=== PATIENT | male | born 1960 | race Caucasian/White ===

== ENCOUNTER 2016-09-11 03:22 | Inpatient (IN) | payer OTHER ==
[~2016-09-11] VITALS: Ht 182.9 cm; Wt 96.0 kg
--- NOTE | ~2016-09-11 | EKG ---
PATIENT: RENNY GORMAN UNIT #: [id number] Ventricular Rate: 128 BPM Atrial Rate: 128 BPM P-R Interval: 134 ms QRS Duration: 96 ms Q-T Interval: 294 ms QTC Calculation(Bezet): 429 ms P [place]: 24 degrees Calculated R [place]: -14 degrees Calculated T [place]: 38 degrees Diagnosis Line: Sinus tachycardia Diagnosis Line: Septal infarct , age undetermined Diagnosis Line: Abnormal ECG Diagnosis Line: When compared with ECG of 26-OCT-2015 18:28, Diagnosis Line: Vent. rate has increased BY 53 BPM Diagnosis Line: Confirmed by CIRO POWELL MD ([id number]) on Diagnosis Line: 09/11/2016 2:02:33 PM INTERPRETING MD: SHERRY SEWELL
--- NOTE | ~2016-09-11 | DS ---
Unit #: [id number] #: [id number] Patient: RENNY GORMAN [id number] [address] [id number] I MR#: [id number] NAME: RENNY GORMAN ROOM: 305 Age: 56 Sex: M Admission Date: 09/11/2016 : 1960 Discharge Date: 09/12/2016 Attending Physician: Dion Olson M.D. Primary Care Physician: No Primary Care Physician DISCHARGE SUMMARY SHORT STAY SUMMARY DIAGNOSIS ON ADMISSION Hepatic encephalopathy. HOSPITAL COURSE This 56-year-old male was admitted to the hospital with increased confusion. Details are as per admission H and P. The patient was admitted and diagnosed with hepatic encephalopathy and was treated with lactulose. The patient was seen by Dr. Sorto in consultation. The patient received lactulose and is doing much better and his confusion is better. He is alert and awake and wants to go home today. CONDITION Stable. ACTIVITY As tolerated. MEDICATION 1. Lactulose 30 mL p.o. t.i.d. 2. Xifaxan 550 mg p.o. b.i.d. 3. Lisinopril 20 mg p.o. daily. 4. Levemir insulin at home dose. 5. Prilosec 40 mg p.o. daily. 6. Folic acid 1 mg p.o. daily. 7. Thiamine 100 mg p.o. daily. FOLLOWUP 1. The patient is advised to follow up with primary care physician in one week and have a CBC and BMP and ammonia level done. 2. The patient is advised to follow up with Dr. Leo Sorto as recommended in four weeks. The plan was discussed in detail with patient and and they showed complete understanding. Dictated by... Ian Mccullough TD: 09/12/2016 15:03 Unit #: [id number] #: [id number] Patient: RENNY GORMAN JOB #: [id number] DISCHARGE SUMMARY Page 1 of 1 X Dion Olson MD X DISCHARGE SUMMARY
--- NOTE | ~2016-09-11 | HP ---
Unit #: [id number] #: [id number] Patient: RENNY GORMAN [id number] [facility] [address] [facility] [place], [place] [address] [id number] I MR#: [id number] NAME: RENNY GORMAN ROOM: 305 Age: 56 Sex: M Admission Date: 09/11/2016 : 1960 Attending Physician: Dion Olson M.D. Primary Care Physician: Primary Care Physician No HISTORY AND PHYSICAL DIAGNOSIS ON ADMISSION 1. Altered mental status. 2. Hepatic encephalopathy. HISTORY OF PRESENT ILLNESS Rrfhw-likpm-pwtu-old male, presented to [facility] with confusion and lethargy. The patient is currently lethargic, arousable but not able to provide history which was obtained with the help of the patient's . As per patient's , the patient was doing good up until last night when around 8:00 p.m. he became confused. The patient's states that during the daytime he was normal. The patient became confused, disoriented, and became very agitated. And she called the EMS and bring the patient to the hospital. In the emergency room, the patient was diagnosed with hepatic encephalopathy and it was decided to admit him into the hospital. The patient is currently lying in the bed, he is lethargic, arousable, but not able to provide history. The patient's states that the patient did not have any fevers, chills, or cough. There was no history of chest pain, tightness, shortness of air, or rectal bleeding. She states that the patient had lactulose at home which he was not taking for the last two months. Unable to obtain review of systems. PAST MEDICAL HISTORY 1. The patient had history of gastroesophageal reflux disease. 2. Hypertension. 3. Type 2 diabetes mellitus. The patient is on Levemir at home. 4. Chronic pain syndrome. 5. Diabetic neuropathy. 6. Chronic hepatitis C and likely cirrhosis as per . The patient has seen a liver doctor in the past but doesn't know the name. 7. Possible obstructive sleep apnea syndrome. 8. History of chronic cytopenia. PAST SURGICAL HISTORY 1. Appendectomy. 2. Right knee surgery. 3. Cholecystectomy. 4. Left ankle surgery. SOCIAL HISTORY The patient is . He smokes half pack of cigarettes per day for the Unit #: [id number] #: [id number] Patient: RENNY GORMAN past many years. He has quit drinking oznr-dj-msem years ago as per . FAMILY HISTORY Unable to obtain. ALLERGIES No known drug allergies. HOME MEDICATIONS 1. Prilosec 40 mg p.o. daily 2. Levemir 50 units daily as per 3. Lisinopril 5 mg p.o. daily PHYSICAL EXAMINATION GENERAL: The patient was lying in bed, not able to provide history. He is lethargic but is arousable. VITAL SIGNS: Reveal temperature of 97.7, pulse is 101 per minute, respiratory rate is 18 per minute, and blood pressure is 163/93. HEENT EXAMINATION: Revealed no conjunctival congestion. Sclerae is nonicteric. RESPIRATORY EXAMINATION: Revealed decreased breath sounds bilaterally. There are no wheezes or crackles. HEART: Tachycardic. S1 and S2. ABDOMEN: Soft and nontender. Bowel sounds are present. EXTREMITIES: Reveal pedal edema. NEUROLOGICAL: The patient is lethargic, does not follow commands. DIAGNOSTIC STUDIES LABORATORY: Labs on admission, the patient's creatinine is 1.2, sodium 137, potassium is 5.1, total bilirubin is 1.3, AST and ALT within normal limits, alkaline phosphatase was 160. The patient's ammonia level was 119, WBC was 3.9, hemoglobin 10.9, platelet count is 115. Urinalysis was negative of nitrate and esterase. Urine drug screen was positive for opiates and amphetamines. IMAGING: The patient's CT scan of head was normal. Chest x-ray did not reveal any active process. CARDIOVASCULAR: EKG revealed sinus tachycardia. ASSESSMENT/PLAN Pqmde-npuec-gecx-old male, presented to the hospital with altered mental status and lethargy. 1. Hepatic encephalopathy, the patient has been seen by Dr. Sorto in consultation who has advised lactulose and advised to put NG tube, and also started the patient on Levaquin. The patient has history of hepatitis C which is treated. 2. History of alcohol abuse. The patient quit drinking four years ago. 3. Hypertension. We will start the patient on his home medications and will use clonidine and will use hydralazine p.r.n. as the patient is not able to take his medications. 4. Insulin dependent diabetes mellitus, I have the patient on Accu-Cheks q.6 and insulin sliding scale on low dose. 5. THE PATIENT IS FULL CODE. The plan was discussed in detail with the patient's who showed Unit #: [id number] #: [id number] Patient: RENNY GORMAN complete understanding. Dictated by Ian Mccullough/saw TD: 09/11/2016 12:49 JOB #: [id number] HISTORY AND PHYSICAL Page 1 of 1 X Dion Olson MD HISTORY AND PHYSICAL
--- NOTE | ~2016-09-11 | CR72 ---
[facility] A Service of [facility] RADIOLOGY TEXT RESULTS PATIENT: RENNY GORMAN LOCATION: [facility] 305- : 58 UNIT #: [id number] AGE: [address]: Dion Olson MD SEX: M ORDER DR: [id number] [place], [place] [address] [id number] MR#: [id number] Acc #: [id number] NAME: RENNY GORMAN : 1960 SEX: M STUDY DATE/TIME: 09/11/2016 3:50 UNIT: [facility] ROOM: STUDY DESCRIPTION: CR Chest Single View Portable Attending Physician: Luis Lynn M.D. Ordering Physician: [facility] MEDICAL IMAGING REPORT This report is preliminary unless electronic signature is present EXAM Portable chest INDICATIONS Shortness of air tonight. TECHNIQUE Frontal view chest. COMPARISON STUDIES 10/26/2015. FINDINGS Heart size not significantly changed. No dense consolidation pleural fluid or pneumothorax. IMPRESSION No active process. Dictated by... Preet Merida M.D. THIS IS AN ELECTRONICALLY VERIFIED REPORT Preet Merida M.D. at 09/11/2016 9:55 PM EED/pcl TD: 09/11/2016 08:55 JOB #: [id number] MEDICAL IMAGING REPORT Page 1 of 1 COPY
--- NOTE | ~2016-09-11 | CT71 ---
[facility] A Service of [facility] RADIOLOGY TEXT RESULTS PATIENT: RENNY GORMAN LOCATION: [facility] 305 : 58 UNIT #: [id number] AGE: [address]: Dion Olson MD SEX: M ORDER DR: [id number] [place], [place] [address] [id number] I MR#: [id number] Acc #: [id number] NAME: RENNY GORMAN : 1960 SEX: M STUDY DATE/TIME: 09/11/2016 6:42 UNIT: [facility] ROOM: 61809 STUDY DESCRIPTION: CT Head Wo Contrast Attending Physician: Dion Olson M.D. Ordering Physician: [facility] MEDICAL IMAGING REPORT This report is preliminary unless electronic signature is present EXAM CT head INDICATIONS Altered mental status and confusion for [address]ative[address] Fell. TECHNIQUE CT head without contrast. This CT exam was performed with one or more of the following radiation dose reduction techniques: automatic exposure control, adjustment of mA and/or kV according to patient size, and iterative reconstruction. COMPARISON CT head 10/26/2015. FINDINGS Ventricular size and configuration are normal. There is no evidence of acute infarct or hemorrhage. There are no extraaxial fluid collections. No mass lesion or mass effect is seen. There are no skull fractures. IMPRESSION Normal noncontrast head CT. Dictated by... Claudy Renteria M.D. THIS IS AN ELECTRONICALLY VERIFIED REPORT Claudy Renteria M.D. at 09/11/2016 2:14 PM RPC/pcl [facility] A Service of [facility] RADIOLOGY TEXT RESULTS PATIENT: RENNY GORMAN LOCATION: [facility] 305 : 58 UNIT #: [id number] AGE: [address]: Dion Olson MD SEX: M ORDER DR: TD: 09/11/2016 09:30 JOB #: [id number] MEDICAL IMAGING REPORT Page 1 of 1 COPY
[~2016-09-11 03:22] MED LIST: ACETAMINOPHEN650 M3 PO; AMLODIPINE BESYL5 MG PO; ASPIRIN81 MG PO; AUGMENTIN PO; AURODEX EAR DRO15 ML AD; AVANDAMET PO; CLONIDINE HCL0.1 MG PO; HYDROCODON-ACE1 EAC5 PO; LEVAQUIN750 MG PO; LEVEMIR FL100 UNIT/1 SQ; LEVEMIR SUBQ; LEVEMIR100 U/ML SQ; LISINOPRIL PO; LISINOPRIL10 MG PO; LORTAB 7.5-5001 TAB PO; METFORMIN; MILK OF MAGNESIA PO; NEURONTIN PO; NEURONTIN600 MG PO; NORCO 10-325 TA1 TAB PO; NOVOLOG100 U/M2; OMEPRAZOLE40 M1 PO; PERCOCET 5-3251 TAB PO; PERCOCET5/325 PO; PHENERGAN PO; PRILOSEC20 M1 PO; PRINIVIL5 MG PO; SYMBICORT 16010.2 GM INH; VIACTIV SOFT C1 EACH PO
[2016-09-11 06:00] LABS: BASOPHIL% 0.4 % (0-2.5); EOSINOPHIL% 0.3 % (0.0-7.0); HEMATOCRIT 32.8 % (38.0-50.0); HEMOGLOBIN 10.9 gm/dL (13.0-16.0); LYMPHOCYTE% 25.7 % (17.0-45.0); MEAN CELL VOLUME 92.4 FL (83-96); MEAN CORPUSCULAR HEMOGLOBIN 30.7 PG (28-34); MEAN CORPUSCULAR HGB CONC 33.2 g/dL (30-36); MEAN PLATELET VOLUME 8.1 FL (6.5-11.5); MONOCYTE# 0.3 X10e3 (0-1.0); MONOCYTE% 7.8 % (3.0-12.0); NEUTROPHIL# 2.5 X10e3 (1.5-7.1); NEUTROPHIL% 65.8 % (40-75); PLATELET COUNT 115 X10e3 (140-420); RED BLOOD COUNT 3.55 X10e (3.90-5.60); RED CELL DISTRIBUTION WIDTH 14.6 % (11.0-15.5); WHITE BLOOD COUNT 3.9 X10e3 (4.0-10.5)
[2016-09-11 06:03] LABS: DIFF IND NO
[2016-09-11 06:21] LABS: URINE SOURCE CLEAN CATCH
[2016-09-11 06:26] LABS: URINE APPEARANCE CLEAR; URINE BILIRUBIN NEG (NEG); URINE BLOOD 1+ (NEG); URINE COLOR YELLOW; URINE GLUCOSE 500 MG/DL (NEG); URINE KETONE NEG (NEG); URINE LEUKOCYTE ESTERASE NEG (NEG); URINE NITRATE NEG (NEG); URINE PROTEIN 1+ (NEG); URINE SPECIFIC GRAVITY 1.016 (1.003-1.035)
[2016-09-11 06:29] LABS: URINE BACTERIA AUWI NEG (NEGATIVE); URINE SQUAMOUS EPITHELIAL CELL NONE SEEN /[HPF]; UWBCS1 AUWI 0-2 (0-5)
[2016-09-11 06:29] LABS: ALBUMIN SERUM 3.6 g/dL (3.5-5.0); ALKALINE PHOSPHATASE 160 U/L (32-92); ALT (SGPT) 24 U/L (10-40); AST (SGOT) 37 U/L (10-42); BILIRUBIN, DIRECT 0.2 mg/dL (0.0-0.2); BILIRUBIN,INDIRECT 1.1 mg/dL (0.0-0.9); BILIRUBIN,TOTAL 1.3 mg/dL (0.2-2.0); BLOOD UREA NITROGEN 40 mg/dL (9-23); BUN/CREATININE RATIO 33.33; CALCIUM SERUM 8.6 mg/dL (8.4-10.2); CARBON DIOXIDE 18 mmol/L (22-31); CHLORIDE 113 mmol/L (100-111); CREATININE SERUM 1.2 mg/dL (0.6-1.4); GLOM FILT RATE Estimated 66.7 mL/min (>60); GLUCOSE FASTING 225 mg/dL (70-110); POTASSIUM 5.1 mmol/L (3.5-5.1); PROTEIN TOTAL SERUM 7.9 g/dL (6.0-8.3); SALICYLATE <4.0 mg/dL; SODIUM 137 mmol/L (135-145)
[2016-09-11 06:30] LABS: ACETAMINOPHEN <10 ug/mL; ALCOHOL BLOOD <5 mg/dL (0)
[2016-09-11 06:42] LABS: AMPHETAMINE POS (NEG); BARBITURATES NEG (NEG); BENZODIAZEPINES NEG (NEG); COCAINE NEG (NEG); MARIJUANA NEG (NEG); OPIATES POS (NEG); TRICYCLIC ANTIDEPRESSANTS NEG (NEG); U METHADONE NEG (NEG)
[2016-09-11 06:43] LABS: CULTURE INDICATED? NO
[2016-09-11 07:19] LABS: INR 1.1; PROTHROMBIN TIME (PATIENT) 11.4 SECONDS (10.0-11.7)
[2016-09-11] MEDS ORDERED: OMEPRAZOLE40 M1 PO (07:53)
[2016-09-11] MEDS ORDERED: LEVEMIR (07:54)
[2016-09-11] MEDS ORDERED: LISINOPRIL PO (07:55)
[2016-09-12 05:52] LABS: ALBUMIN SERUM 3.5 g/dL (3.5-5.0); BILIRUBIN,TOTAL 1.8 mg/dL (0.2-2.0); CALCIUM SERUM 9.1 mg/dL (8.4-10.2); CREATININE SERUM 1.2 mg/dL (0.6-1.4); GLOM FILT RATE Estimated 66.7 mL/min (>60); POTASSIUM 4.4 mmol/L (3.5-5.1); PROTEIN TOTAL SERUM 7.8 g/dL (6.0-8.3)
[2016-09-12 09:24] LABS: BASOPHIL% 0.8 % (0-2.5); EOSINOPHIL% 0.9 % (0.0-7.0); HEMATOCRIT 36.8 % (38.0-50.0); LYMPHOCYTE# 1.4 X10e3 (1.0-3.5); LYMPHOCYTE% 33.5 % (17.0-45.0); MEAN CORPUSCULAR HGB CONC 32.5 g/dL (30-36); MEAN PLATELET VOLUME 9.1 FL (6.5-11.5); MONOCYTE# 0.4 X10e3 (0-1.0); MONOCYTE% 10.3 % (3.0-12.0); NEUTROPHIL# 2.2 X10e3 (1.5-7.1); NEUTROPHIL% 54.5 % (40-75); PLATELET COUNT 125 X10e3 (140-420); RED BLOOD COUNT 3.86 X10e (3.90-5.60); RED CELL DISTRIBUTION WIDTH 14.4 % (11.0-15.5); WHITE BLOOD COUNT 4.1 X10e3 (4.0-10.5)
[2016-09-12 09:26] LABS: MEAN CELL VOLUME 95.4 FL (83-96)
[2016-09-12 09:28] LABS: DIFF IND NO
[2016-09-12] MEDS ORDERED: KRISTALOSE10 GM PO (11:00)
[2016-09-12] MEDS ORDERED: XIFAXAN550 MG PO (11:02)
[2016-09-12] MEDS ORDERED: FOLIC ACID1 MG PO (11:04)
[2016-09-12] MEDS ORDERED: THIAMINE HCL100 M1 PO (11:05)
== END 2016-09-12 12:07 | disposition home or self-care (01) | DRG 442 ==
LOC: CED 03:22 → CEDOF 07:49 → CED 09:00 → CEDOF 10:15 → C3A PCU 10:15
PROVIDERS: Emergency Medicine; Internal Medicine; Physician Assistant
DX: K72.90 Hepatic failure, unspecified without coma (principal); D61.818 Other pancytopenia; E11.40 Type 2 diabetes mellitus with diabetic neuropathy, unspecified; Z79.4 Long term (current) use of insulin; F17.210 Nicotine dependence, cigarettes, uncomplicated; K74.60 Unspecified cirrhosis of liver; K21.9 Gastro-esophageal reflux disease without esophagitis; I10 Essential (primary) hypertension; Z86.19 Personal history of other infectious and parasitic diseases; Z90.49 Acquired absence of other specified parts of digestive tract
CPT/HCPCS: 36415; 70450; 71010; 80048; 80053; 80076; 80307; 81003; 82140; 82947; 85025; 85610; 85730; 93005; 96360; 96372; 99285; C9113; G0480; J0360; J1815; J1956; J2060; J3486

== ENCOUNTER → 2016-09-22 | Outpatient (CLI) | payer OTHER ==
[~2016-09-22] MED LIST changes: +FOLIC ACID1 MG PO; +KRISTALOSE10 GM PO; +LEVEMIR; +THIAMINE HCL100 M1 PO; +XIFAXAN550 MG PO
--- NOTE | ~2016-09-22 | MR103 ---
[facility] A Service of [facility] RADIOLOGY TEXT RESULTS PATIENT: RENNY GORMAN LOCATION: [facility] : 58 UNIT #: [id number] AGE: [address]: Leydi Deutsch SEX: M ORDER DR: [id number] [facility]. [place], [place] [address] [id number] MR#: [id number] Acc #: [id number] NAME: RENNY GORMAN : 1960 SEX: M STUDY DATE/TIME: 09/22/2016 15:21 UNIT: [facility] ROOM: STUDY DESCRIPTION: MR Knee Wo Contrast Lt Attending Physician: Leydi Deutsch P.A.-C. Referring Physician: Leydi Deutsch P.A.-C. Ordering Physician: Leydi Deutsch P.A.-C. Primary Care Physician: Geoffrey Groves M.D. MRI CENTER REPORT This report is preliminary unless electronic signature is present. EXAM Left knee MRI without contrast 09/22/2016 HISTORY 56-year-old male with chronic left knee pain for 10 - 12 years. History of left knee surgery 10 years ago. No operative reports available for review. COMPARISON Knee x-ray 09/16/2016. Left knee MRI 06/12/2010. TECHNIQUE Routine unenhanced multiplanar, multisequence high field MR imaging of the left knee was performed. FINDINGS There is truncation of the posterior horn and body segment medial meniscus suggesting prior partial medial meniscectomy. Correlation with operative history. There is a new or recurrent longitudinal horizontal oblique tear of the posterior horn medial meniscus which appears to contact both articular surfaces and involve the free margin. The lateral meniscus is intact. Cruciate and collateral ligaments are intact. Extensor mechanism is intact. There is a moderate joint effusion with associated synovial proliferative change. There is a popliteal cyst measuring at least 6 cm in length. There is full-thickness articular cartilage loss throughout the patella with subchondral marrow edema in the inferior medial patellar facet. Low grade chondromalacia throughout the femoral trochlea. Lateral compartment articular cartilage is intact. There is extensive full-thickness STS. [facility] A Service of [facility] RADIOLOGY TEXT RESULTS PATIENT: RENNY GORMAN LOCATION: [facility] : 58 UNIT #: [id number] AGE: [address]: Leydi Deustch SEX: M ORDER DR: articular cartilage loss along the weightbearing surfaces of the medial compartment. Since the prior MRI from 2010, there has been interval development of a nondisplaced vertically oriented fracture involving the far lateral aspect of the patella, which involves the far lateral aspect of the lateral patellar facet articular surface. No significant gap or step-off. There is no significant associated marrow edema suggesting possible chronic injury. Remainder of the bone marrow signal is within expected limits. Visualized musculature is unremarkable. IMPRESSION 1. Truncation of the posterior horn body segment medial meniscus suggesting prior partial medial meniscectomy. Correlation with operative history. There is a new or recurrent longitudinal horizontal oblique tear of the posterior horn medial meniscus which appears to contact both articular surfaces and involve the free margin. 2. No acute ligament injury. 3. Indeterminate age, chronic-appearing vertically oriented fracture of the far lateral aspect of the patella with involvement of the far lateral articular surface of the lateral patellar facet. No significant gap or step-off. This is new since the prior MRI examination from 2010. 4. Extensive full-thickness articular cartilage loss throughout the patella. 5. Extensive full-thickness articular cartilage loss throughout the medial compartment. 6. Moderate joint effusion with associated synovial proliferation. Dictated by... Ghanshyam Palmer M.D. THIS IS AN ELECTRONICALLY VERIFIED REPORT Ghanshyam Palmer M.D. at 09/24/2016 12:21 PM BENITA/jaziel TD: 09/23/2016 13:49 JOB #: [id number] MRI CENTER REPORT Page 1 of 1 COPY
== END | disposition home or self-care (01) ==
LOC: CMRI 14:23
DX: S80.02XA Contusion of left knee, initial encounter (principal); M25.462 Effusion, left knee; M94.8X6 Other specified disorders of cartilage, lower leg; S83.242A Other tear of medial meniscus, current injury, left knee, initial encounter
CPT/HCPCS: 73721